=== PATIENT | male | born 1990 | race Caucasian/White ===

== ENCOUNTER 2018-05-25 23:46 | Emergency (ER) | payer SELFPAY ==
[2018-05-26 00:04] VITALS: BP 104/61; PULSE 81; RESP 14; TEMP 98.3; O2SAT 99
--- NOTE | 2018-05-26 00:40 | C.PDOC ---
History Of Present Illness 27 year old male presents to the emergency department with complaints of pain to his left 5th finger. Patient states that he was closing a door and hit his finger on . Patient has been using topical arnica gel with minimal relief. c/o pain to 5th finger, sts a cloising door hit it on . using topical arnica gel/. Time Seen by Provider: 05/26/18 00:29 Chief Complaint (Nursing): Finger,Hand,&Wrist History Per: Patient History/Exam Limitations: no limitations Onset/Duration Of Symptoms: Days (2) Current Symptoms Are (Timing): Still Present Quality: "Pain" Past Medical History Reviewed: Historical Data, Nursing Documentation, Vital Signs Vital Signs: Last Vital Signs Temp 98.3 F 05/26/18 00:03 Pulse 81 05/26/18 00:03 Resp 14 05/26/18 00:03 BP 104/61 05/26/18 00:03 Pulse Ox 99 05/26/18 00:03 - Medical History PMH: Depression Surgical History: No Surg Hx Family History: States: No Known Family Hx - Social History Hx Tobacco Use: Yes Hx Alcohol Use: No Hx Substance Use: No - Immunization History Hx Tetanus Toxoid Vaccination: No Hx Influenza Vaccination: No Hx Pneumococcal Vaccination: No Review Of Systems Constitutional: Negative for: Fever, Chills Musculoskeletal: Positive for: Hand Pain (left 5th finger) Neurological: Negative for: Weakness, Numbness Physical Exam - Physical Exam Appears: Non-toxic, No Acute Distress Skin: Warm, Dry, No Ecchymosis Neck: Supple Extremity: No Normal ROM (tender ROM), Tenderness (mild tenderness to left 5th MCP), No Swelling Pulses: Left Radial: Normal Neurological/Psych: Oriented x3, Normal Speech, Normal Cognition, Normal Motor, Normal Sensation ED Course And Treatment O2 Sat by Pulse Oximetry: 99 (RA) Pulse Ox Interpretation: Normal Medical Decision Making Medical Decision Making: no fx noted on xray, srini bandage applied. Plan: XR Left Hand Motrin 600mg PO Disposition Counseled Patient/Family Regarding: Studies Performed, Diagnosis - Disposition Referrals: Rad Dawkins MD [Staff Provider] - Disposition: HOME/ ROUTINE Disposition Time: 01:01 Condition: GOOD Additional Instructions: Wear ac bandage for comfort. Recommend Tyl neol or Motrin for pain. Follow up with Dr Dawkins, hand specialist Instructions: Hand Pain (DC) Forms: [facility] (Irish), General Discharge Instructions - Clinical Impression Clinical Impression: Left hand pain - PA / PATIENT ACCOUNT REPRESENTATIVE / Resident Statement MD/DO has reviewed & agrees with the documentation as recorded. - Scribe Statement The provider has reviewed the documentation as recorded by the Scribe (Dion Reynolds) All medical record entries made by the Scribe were at my direction and personally dictated by me. I have reviewed the chart and agree that the record accurately reflects my personal performance of the history, physical exam, medical decision making, and the department course for this patient. I have also personally directed, reviewed, and agree with the discharge instructions and disposition.
--- NOTE | 2018-05-26 11:14 | RAD ---
Left hand three views HISTORY: Fifth metacarpal pain. Comparison: None available. Findings: No evidence of acute displaced fracture or dislocation. On the oblique view, a transverse linear area of sclerosis projecting over the 4th metacarpal shaft may be artifactual. Clinical correlation. Soft tissue swelling adjacent to the 5th metacarpal bone. Impression: Soft tissue swelling. If pain persists, consider correlation with MRI.
== END 2018-05-26 01:07 | disposition home or self-care (01) ==
LOC: C.ER 23:46
DX: M79.642 Pain in left hand (principal); Z72.0 Tobacco use; F32.9 Major depressive disorder, single episode, unspecified